=== PATIENT | female | born 1965 | race Caucasian/White ===

== ENCOUNTER 2018-06-02 16:11 | Outpatient (CLI) | payer OTHER, SELFPAY ==
[2018-06-02 17:00] LABS: Bilirubin Negative (Negative); Blood Large (Negative); Clarity Clear; Glucose Negative (Negative); Ketones Negative (Negative); Leukocyte Esterase Trace (Negative); Nitrite Negative (Negative); Specific Gravity <= 1.005 (1.005-1.025); Urobilinogen 0.2 EU/dL (Up TO 0.2); pH 5.5 (5-8)
[2018-06-02 17:15] LABS: Bacteria Negative HPF (Negative); C & S Indicated? Yes; Casts Negative LPF (Negative); Crystals Few Calcium Oxalate HPF (Negative); Epithelial Cells Few HPF (Negative); Mucus Negative (Negative); RBC 20-50 (0-2)
== END 2018-06-02 16:31 ==
PROVIDERS: PCP Physician Assistant; Visit Provider Internal Medicine
DX: R31.9 Hematuria, unspecified (principal)
CPT/HCPCS: 81003; 81015; 87086

== ENCOUNTER 2020-11-23 02:37 | Outpatient (CLI) | payer OTHER, SELFPAY ==
[2020-11-23 08:26] LABS: Abs Immature Grans 0.01 10^3/uL (0.0-0.06); Absolute Basophil Count 0.04 10^3/uL (0.0-0.2); Absolute Eosinophil Count 0.17 10^3/uL (0.0-0.7); Absolute Lymphocyte Count 2.02 10^3/uL (1.2-3.4); Absolute Monocyte Count 0.71 10^3/uL (0.1-0.8); Absolute Neutrophil Count 2.51 10^3/uL (1.2-6.7); Basophils % 0.7; Eosinophils % 3.1; HCT 46.8 % (36.0-46.0); HGB 15.5 g/dL (11.2-15.7); Immature Grans % 0.2; MCH 29.3 pg (27.0-33.0); MCHC 33.1 % (32.0-36.0); MCV 88.5 fL (80-95); MPV 9.7 fL (8.0-11.0); Nucleated RBC 0 %; Platelet Count 264 10^3/uL (130-400); RBC 5.29 10^6/uL (3.93-5.22); RDW 12.9 % (11.7-14.6); WBC 5.46 10^3/uL (4.4-10.8)
[2020-11-23 09:26] LABS: ESR 9 mm/hr (0-30)
[2020-11-23 09:58] LABS: ALT 26 U/L (14-59); AST 18 U/L (15-37); Albumin 3.9 g/dL (3.4-5.0); Alkaline Phosphatase 72 U/L (46-116); Anion Gap 5.2 mmol/L (3-11); BUN 18 mg/dL (7-18); Bilirubin, Total 0.5 mg/dL (0.2-1.0); CO2 29.8 mmol/L (21.0-32.0); CREATININE 0.9 mg/dL (0.55-1.02); Calcium 9.9 mg/dL (8.5-10.1); Chloride 107 mmol/L (98-107); Folate 11.9 ng/mL (8.6-20.0); Glucose 85 mg/dL (74-106); Magnesium 2.1 mg/dL (1.8-2.4); Potassium 3.9 mmol/L (3.5-5.1); Sodium 142 mmol/L (136-145); T4 6.8 ug/mL (4.7-13.3); TSH 1.97 uIU/mL (0.36-3.74); Total Protein 6.9 g/dL (6.4-8.2); Vitamin B12 531 pg/mL (193-986)
[2020-11-23 10:13] LABS: Iron 56 ug/dL (50-170); Total Iron Binding Capacity 278 ug/dL (250-450); Transferrin Sat 20 % (15-50)
[2020-11-23 10:14] LABS: Vitamin D 25 Total 49.9 ng/mL (30-100)
[2020-11-23 16:10] LABS: CRP, High Sensitivity 2.23 mg/L (See Note); Rheumatoid Factor <8.6 IU/mL (<12.0)
[2020-11-23 16:26] LABS: T3,Free 3.3 pg/mL (2.8-5.3)
[2020-11-23 17:24] LABS: Thyroperoxidase Antibody <28 U/mL (<=60)
[2020-11-26 09:27] LABS: Homocysteine 10.5 umol/L (5.0-13.9)
[2020-11-26 11:10] LABS: Lyme Ab w Rflx to Lyme Confirm Negative (Negative)
[2020-11-26 14:43] LABS: ANA Interpretation Negative (Negative)
== END 2020-11-23 02:38 | disposition home or self-care (01) ==
LOC: LBO 02:37
PROVIDERS: PCP Physician Assistant
DX: Z00.00 Encounter for general adult medical examination without abnormal findings (principal); E06.3 Autoimmune thyroiditis; E04.1 Nontoxic single thyroid nodule; E55.9 Vitamin D deficiency, unspecified
CPT/HCPCS: 36415; 80053; 82306; 83090; 85652; 86141; 82607; 82746; 83540; 83550; 83735; 84436; 84443; 84481; 85025; 86038; 86376; 86431; 86618

== ENCOUNTER 2024-09-23 16:36 | Outpatient (CLI) | payer OTHER, SELFPAY ==
[2024-09-23 16:38] LABS: Anion Gap 6.2 mmol/L (3-11); CO2 29.8 mmol/L (21.0-32.0); Calcium 10.1 mg/dL (8.5-10.1); Chloride 103 mmol/L (98-107); Potassium 4.3 mmol/L (3.5-5.1); Sodium 139 mmol/L (136-145); TSH (W/Ref FT4) 0.75 uIU/mL (0.36-3.74)
[2024-09-26 10:29] LABS: Prolactin <0.3 ng/mL (See Note)
== END 2024-09-23 16:37 | disposition home or self-care (01) ==
PROVIDERS: PCP Physician Assistant; Visit Provider General Practice
DX: E04.1 Nontoxic single thyroid nodule (principal); R21 Rash and other nonspecific skin eruption; L71.0 Perioral dermatitis; E83.52 Hypercalcemia
CPT/HCPCS: 36415; 80051; 82310; 84146; 84443